=== PATIENT | female | born 1995 | race Caucasian/White ===

== ENCOUNTER 2020-12-04 18:02 | Emergency (ER) | payer SELFPAY ==
[~2020-12-04] VITALS: Ht 177.8 cm; Wt 74.8 kg
[2020-12-04 18:45] VITALS: BP 107/67
[2020-12-04] MEDS ORDERED: SODIUM CHLORIDE 0.9% 1,000 ML IV ONE (19:00)
[2020-12-04] MEDS ORDERED: CLINDAMYCIN 900MG IV 50 ML IV ONE (19:00)
[2020-12-04] MEDS ORDERED: ACETAMINOPHEN 325 MG TAB PO ONE (19:15)
[2020-12-04 19:32] LABS: Basophils # (auto) 0 10 ^3/uL (0-0.2); Basophils % (auto) 0.4 % (0.0-2.0); Eosinophils # (auto) 0.1 10 ^3/uL (0-0.8); Eosinophils % (auto) 0.7 % (0.0-7.0); Hematocrit 42.9 % (36.0-46.0); Lymphocytes # (auto) 1.1 10 ^3/uL (0.4-5.4); Lymphocytes % (auto) 13.9 % (10.0-50.0); Mean Corpuscular Hemoglobin 32.8 pg (28.0-32.0); Mean Corpuscular Volume 93.8 fL (80.0-100.0); Monocytes # (auto) 1.4 10 ^3/uL (0-1.3); Monocytes % (auto) 17.9 % (0.0-12.0); Neutrophils # (auto) 5.4 10 ^3/uL (1.6-8.6); Neutrophils % (auto) 67.1 % (37.0-80.0); Nucleated Red Blood Cells % 0.2 %; Platelet Count (auto) 273 10^3/uL (140-450); Red Blood Cells 4.57 10^6/uL (4.0-5.20)
[2020-12-04 19:53] LABS: Albumin 3.8 g/dL (3.4-5.0); BUN/Creatinine Ratio 10.7; Bilirubin, Total 0.5 mg/dL (0.2-1.0); Calcium 8.9 mg/dL (8.5-10.1); Total Protein 7.9 g/dL (6.4-8.2)
== END 2020-12-04 20:30 | disposition home or self-care (01) ==
LOC: ER 18:04
DX: K02.9 Dental caries, unspecified (principal); Z88.8 Allergy status to other drugs, medicaments and biological substances
CPT/HCPCS: 36415; 80053; 84702; 85025; 96361; 96365; 99284; J3490; J7030